=== PATIENT | female | born 1960 | race Caucasian/White ===

== ENCOUNTER 2022-12-17 08:07 | Emergency (ER) | payer OTHER ==
[~2022-12-17] VITALS: Ht 162.6 cm; Wt 63.5 kg
[2022-12-17 08:12] VITALS: BP 120/55; PULSE 95; RESP 19; TEMP 98.7; O2SAT 98
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
[2022-12-17 09:08] VITALS: O2SAT 95
[2022-12-17] MEDS ORDERED: HYDR-5191 PO (09:08)
[2022-12-17] MEDS ORDERED: IBUP-2213 PO (09:08)
[2022-12-17 09:12] VITALS: BP 101/56; PULSE 91; RESP 19; TEMP 97.7; O2SAT 95
--- NOTE | 2022-12-17 09:13 | NUR ---
Patient discharged with v/s stable. Written and verbal after care instructions given and explained. Patient alert, oriented and verbalized understanding of instructions. Ambulatory with steady gait. All questions addressed prior to discharge. ID band removed. Patient advised to follow up with PMD. Rx of norco, motrin given. Patient educated on indication of medication including possible reaction and side effects. Opportunity to ask questions provided and answered.
[2022-12-17] MEDS ORDERED: ACETAMINOPHEN EXTRA STRENGTH 500 MG TAB PO ONE (09:50)
--- NOTE | 2022-12-17 09:55 | NUR ---
pt stated she wanted some meds for pain. pain scale 9/10. provider made aware. pt has been medicated per providers orders. call light with in reach.
--- NOTE | 2022-12-17 10:15 | NUR ---
pt was reassed due to pain meds prescribed by provider. PT states pain is at a level 2. cructh teaching given. Pts daughter here to supervisor opening and picking pt. Per providers orders pt is cleared for discharge.
--- NOTE | 2022-12-17 10:44 | NUR ---
The patient's care was reviewed and supervised by [place] [facility], RN.
== END 2022-12-17 09:13 | disposition home or self-care (01) ==
LOC: MED 08:07 → EDBD 08:07 → MED 09:13
DX: S82.841A Displaced bimalleolar fracture of right lower leg, initial encounter for closed fracture (principal); S80.212A Abrasion, left knee, initial encounter; Z79.899 Other long term (current) drug therapy; V49.88XA Car occupant (driver) (passenger) injured in other specified transport accidents, initial encounter; Y93.89 Activity, other specified; Y92.89 Other specified places as the place of occurrence of the external cause; Y99.8 Other external cause status
CPT/HCPCS: 29515; 73562; 73610; 73630; 99284